=== PATIENT | male | born 1975 | race Caucasian/White ===

== ENCOUNTER 2024-04-01 15:20 | Emergency (ER) | payer BC, SELFPAY ==
[2024-04-01 15:35] VITALS: BP 139/95
--- NOTE | 2024-04-01 15:37 | ED.GENMED ---
ED Provider Triage
<Arnoldo Arriaga PA-C - Last Filed: 04/01/24 15:39>
-
Patient seen by provider in Triage?: Seen in Triage
48-year-old male with history of bilateral inguinal hernia repair done about a year and a half ago at a different hospital presents with lower abdominal pain and burning over the past several days. He feels like he did something 2 days ago that
aggravated his hernia repair. He notes increased frequency of urination and has been moving his bowels but no vomiting. He notes intermittent chills but no measurable fever
Looks uncomfortable on exam but vital signs are stable. Will check labs and have him drink for CT scan of abdomen
Patient evaluated by healthcare provider at triage but warrants further assessment
History of Present Illness
<Arnoldo Arriaga PA-C - Last Filed: 04/01/24 15:39>
General
Chief Complaint: Abdominal Pain
Time Seen by Provider: 04/01/24 17:04
<Sahara Lizarraga PA-C - Last Filed: 04/01/24 22:34>
General
Source: patient
Exam Limitations: none
Nursing documentation reviewed up to this point in time: agreed with
History of Present Illness
History of Present Illness:
48-year-old male with a past medical history of inguinal hernias presents emergency department today with concerns of lower abdominal pain for the past 2 weeks. Patient reports that he noticed the pain got acutely worse this past week. He states
that when he eats, he gets a sensation of fullness in his lower abdomen which makes him uncomfortable He states that how he feels right now is how he felt before he had to get his inguinal hernia surgery. He denies any testicular pain, denies any
burning with urination. He denies any nausea or vomiting. He notes subjective chills. He states that when he was exercising this past week, he was running and felt an acute worsening of her pain and felt like that aggravated it. He denies other
past intra-abdominal surgeries.
Review of Systems
<Sahara Lizarraga PA-C - Last Filed: 04/01/24 22:34>
Review of Systems
All Other Systems: ROS reviewed and negative except as documented in HPI and ROS
Phy Exam
<Sahara Lizarraga PA-C - Last Filed: 04/01/24 22:34>
Physical Exam
Physical Exam:
General: Patient is well appearing and in no acute distress; non-toxic
Skin: Warm and dry, no rashes or lesions
Head: Normocephalic, atraumatic
Eyes: Sclera non-icteric. EOMs intact.
Cardiac: Regular rate and rhythm, no murmurs
Peripheral Vascular: No lower extremity swelling or edema
Pulm: Normal respiratory effort, no wheezes, rales, rhonchi
Abdomen: Left lower quadrant abdominal tenderness with guarding noted, no palpable abdominal masses
Neuro: CN II-XII intact, no focal neurologic deficits.
Psychiatric: Appropriate mood and affect.
Course
<Arnoldo Arriaga PA-C - Last Filed: 04/01/24 15:39>
Orders/Labs/Results
Orders:
Orders
04/01/24 15:36
Iohexol [Omnipaque] See Protocol PO NOW STA
04/01/24 15:37
CT Abd/pel W Iv And Oral Contr Urgent
Comment:
Reason For Exam: lower abdominal pain, history of hernia repair
04/01/24 15:42
Complete Blood Count/With Diff Urgent
Comprehensive Metabolic Panel Urgent
Lipase Urgent
04/01/24 17:38
Urinalysis Reflex To Culture Urgent
Date Specimen was Collected: 04/01/24
Time Specimen was Collected: 17:17
Abnormal Lab Results
04/01/24
15:42
Glucose 109 H mg/dl
(70-99)
04/01/24 15:42
04/01/24 15:42
Vital Signs
Initial and Last Documented VS:
Initial Vital Signs
Temp Pulse Resp BP Pulse Ox
36.6 C 66 16 139/95 98
04/01/24 15:35 04/01/24 15:35 04/01/24 15:35 04/01/24 15:35 04/01/24 15:35
Last Documented Vital Signs
Temp Pulse Resp BP Pulse Ox
36.6 C 67 18 132/83 98
04/01/24 15:35 04/01/24 20:16 04/01/24 20:16 04/01/24 20:16 04/01/24 20:16
Julietalt;Sahara Lizarraga PA-C - Last Filed: 04/01/24 22:34>
Orders/Labs/Results
Orders:
Orders
04/01/24 15:36
Iohexol [Omnipaque] See Protocol PO NOW STA
04/01/24 15:37
CT Abd/pel W Iv And Oral Contr Urgent
Comment:
Reason For Exam: lower abdominal pain, history of hernia repair
04/01/24 15:42
Complete Blood Count/With Diff Urgent
Comprehensive Metabolic Panel Urgent
Lipase Urgent
04/01/24 17:38
Urinalysis Reflex To Culture Urgent
Date Specimen was Collected: 04/01/24
Time Specimen was Collected: 17:17
Abnormal Lab Results
04/01/24
15:42
Glucose 109 H mg/dl
(70-99)
04/01/24 15:42
04/01/24 15:42
Vital Signs
Initial and Last Documented VS:
Initial Vital Signs
Temp Pulse Resp BP Pulse Ox
36.6 C 66 16 139/95 98
04/01/24 15:35 04/01/24 15:35 04/01/24 15:35 04/01/24 15:35 04/01/24 15:35
Last Documented Vital Signs
Temp Pulse Resp BP Pulse Ox
36.6 C 67 18 132/83 98
04/01/24 15:35 04/01/24 20:16 04/01/24 20:16 04/01/24 20:16 04/01/24 20:16
<Konrad Cooney MD - Last Filed: 04/01/24 23:32>
Orders/Labs/Results
Orders:
Orders
04/01/24 15:36
Iohexol [Omnipaque] See Protocol PO NOW STA
04/01/24 15:37
CT Abd/pel W Iv And Oral Contr Urgent
Comment:
Reason For Exam: lower abdominal pain, history of hernia repair
04/01/24 15:42
Complete Blood Count/With Diff Urgent
Comprehensive Metabolic Panel Urgent
Lipase Urgent
04/01/24 17:38
Urinalysis Reflex To Culture Urgent
Date Specimen was Collected: 04/01/24
Time Specimen was Collected: 17:17
Abnormal Lab Results
04/01/24
15:42
Glucose 109 H mg/dl
(70-99)
04/01/24 15:42
04/01/24 15:42
Vital Signs
Initial and Last Documented VS:
Initial Vital Signs
Temp Pulse Resp BP Pulse Ox
36.6 C 66 16 139/95 98
04/01/24 15:35 04/01/24 15:35 04/01/24 15:35 04/01/24 15:35 04/01/24 15:35
Last Documented Vital Signs
Temp Pulse Resp BP Pulse Ox
36.6 C 67 18 132/83 98
04/01/24 15:35 04/01/24 20:16 04/01/24 20:16 04/01/24 20:16 04/01/24 20:16
<Sahara Lizarraga PA-C - Last Filed: 04/01/24 22:34>
MDM/Problems Addressed
Differential Diagnosis Includes:
See below
MDM/Problems Addressed:
NUMBER AND COMPLEXITY OF PROBLEMS ADDRESSED AT THE ENCOUNTER
� Chronic conditions affecting care: N/A
� Acute Exacerbation and/or Progression of Chronic Illness: N/A
� Differential Diagnosis includes: Differentials include diverticulitis, incarcerated hernia, colitis, abdominal wall
AMOUNT AND/OR COMPLEXITY OF DATA TO BE REVIEWED AND ANALYZED
� I performed an independent evaluation of and my interpretation is:
CT: No acute abnormalities
Laboratory Studies: No leukocytosis with lipase normal no elevation of LFTs
Other:
� Review of other/old records: Reviewed previous records in [facility], no previous ER physician or discharge summaries to review
� Clinical information was obtained by an independent historian: partner present who helped provide HPI
� Prescriptions/Medications Considered but not given: n/a
� Further testing considered but not performed: n/a
RISK OF COMPLICATIONS AND/OR MORBIDITY OR MORTALITY OF PATIENT MANAGEMENT
� Social determinants of health affecting care: none
� Discussion with other providers: ER attending
� Escalation of care including admission/observation vs risk of discharge considered:
48-year-old male with past medical history of bilateral inguinal hernias presents emergency department today with lower abdominal pain and pelvic pain for the past week but noticed an acute worsening after running and exercising. He has no fevers
or chills, no diarrhea or constipation. He has no urinary symptoms. On physical exam he is well-appearing his tenderness seems to be localized to the left lower quadrant he does have guarding but no palpable abdominal masses. CAT scan done with
IV and oral contrast which was negative for any hernias or acute intra-abdominal pathology. Did show diverticulosis. Discussed findings with patient. In light of patient's injury and pain is worse with movement, suspect possible inguinal or
abdominal wall musculature strain. Patient stable for. Patient has a follow-up appointment with his surgeon next week.
<Sahara Lizarraga PA-C - Last Filed: 04/01/24 22:34>
*Critical Care Note
Total Time (30-74mins, 75-104mins- exclusive of procedures): Not Applicable
ED Attending Note
<Arnoldo Arriaga PA-C - Last Filed: 04/01/24 15:39>
-
Portions of this chart may have been created with voice recognition software.� Occasional wrong word or��sound alike� substitutions may have occurred due to the inherent limitations of voice recognition software.
<Konrad Cooney MD - Last Filed: 04/01/24 23:32>
ED Attending Note
Patient seen and examined by attending physician: Yes
ED Attending Note:
I have seen and evaluated the patient with a [id number] encounter. I have spoken to the advance practicer provider and involved in the medical history, the physical exam, medical decision making.
Evaluation and management service: agree unless noted differently below.
Results interpretation: agree unless noted differently below.
Focused HPI: 48-year-old male presents to the ER for evaluation of suprapubic pain. He does have notable history of inguinal hernia repair bilaterally about 1-1/2 years ago. He reports that pain is located suprapubic region does not radiate. He
says it is worse with certain movements and feels like a sharp sensation with movement. No relieving factors noted. He denies any dysuria, hematuria, change in urinary frequency to be�triage note mentions increased urination but he denies this to
me. He denies any change in his bowels. He denies any testicular pain or swelling. He denies any other complaints. He does admit that he does regular exercise but he cannot recall a specific injury.
Physical exam: Awake alert no distress. Vital signs normal. No appreciable hernia on examination of the inguinal region. He has some mild tenderness in the suprapubic region.
Medical Decision Makin-year-old male presents for evaluation of suprapubic pain positional. Vitals and exam as above. Labs sent off including a CBC and a CMP which were unremarkable. Urinalysis negative for infection. CT abdomen pelvis no
acute pathology. Suspect that this is likely an abdominal wall strain/injury. Stable for discharge�advised rest, NSAIDs, follow-up as an outpatient within a week. He is agreeable to this. We spoke about return precautions all questions answered.
Discharge Plan
Departure
Patient Disposition: Home (Routine Discharge)
Date of Disposition: 04/01/24
Time of Disposition: 20:16
Patient with high blood pressure during this ER visit?: Yes
Condition: Good
Discharge Problem:
Abdominal wall strain
Instructions: Abdominal Pain, BLOOD PRESSURE
Referrals:
Shawna Grider, [Family Provider] -
Activity Restrictions/Additional Instructions:
Your blood work is unremarkable. Your urinalysis does not show any signs of infection.
We suspect you have an abdominal wall strain considering that your symptoms acutely worsen with physical activity and running. Please follow-up with your surgeon as scheduled.
PLEASE RETURN EMERGENCY DEPARTMENT SHOULD YOU DEVELOP CHEST PAIN, SHORTNESS OF BREATH, ACUTE WORSENING OF HER SYMPTOMS, BLOOD IN YOUR URINE, BURNING WITH URINATION, FEVERS OR CHILLS, WEAKNESS, CONFUSION, DIFFICULTY SPEAKING, BLOOD IN YOUR STOOLS, OR
ANY OTHER SIGNS OR SYMPTOMS WORRISOME TO YOU.
Interventions
Interventions:
*Risk Screen - Suicide Last Done: 04/01/24 15:39
*General Assessment Last Done: 04/01/24 20:22
*Neglect/Abuse Screening Last Done: 04/01/24 15:39
ED- Fall Risk Assessment Last Done: 04/01/24 20:22
*ED COVID-19 Vaccine History Last Done: 04/01/24 20:22
*Nursing Disposition Last Done: 04/01/24 20:22
VO-Ovnofg-[id number] Assessment Last Done: 04/01/24 17:30
Discharge Date and Time
Discharge Date/Time: 04/01/24 20:22
Print Language: BELIZEAN
[2024-04-01 15:50] LABS: % Basophils 0.6 % (0-2); % Eosinophils 1.1 % (0-6); % Immature Granulocytes 0.1 % (0-0.5); % Lymphocytes 28.6 % (20.5-51.1); % Monocytes 6.3 % (1.7-9.3); % Neutrophils 63.3 % (42.2-75.2); Absolute Eosinophils 0.1 10^3/uL (0-0.7); Absolute Monocytes 0.5 10^3/uL (0.1-0.6); Absolute Neutrophils 4.5 10^3/uL (1.4-6.5); Hematocrit 44.9 % (39.0-52.0); Hemoglobin 15.3 g/dL (13.0-18.0); Mean Corp Hgb Conc. 34.1 g/dL (33.0-37.0); Mean Corpuscular Hgb 29.7 pg (27.0-31.0); Mean Corpuscular Volume 87.2 fL (80.0-94.0); Mean Platelet Volume 8.3 fL (7.4-10.4); Nucleated Red Blood Cells % 0 % (-); Platelet Count 254 10^3/uL (130-400); Red Blood Cell Count 5.15 10^6/uL (4.70-6.10); Red Cell Dist. Width 12.4 % (11.5-14.5); White Blood Cell Count 7.1 10^3/uL (4.8-10.8)
[2024-04-01 16:11] LABS: ALT (SGPT) 21 U/L (0-50); AST (SGOT) 24 U/L (17-59); Albumin 4.6 g/dl (3.5-5.0); Alkaline Phosphatase 61 U/L (38-126); Blood Urea Nitrogen 14 mg/dl (9-20); Calcium 9.3 mg/dl (8.4-10.2); Carbon Dioxide 28 mmol/L (22-30); Chloride 100 mmol/L (98-107); Glucose 109 mg/dl (70-99); Lipase 65 U/L (23-300); Potassium 4.5 mmol/L (3.5-5.1); Sodium 139 mmol/L (135-145); Total Bilirubin 0.8 mg/dl (0.2-1.3); Total Protein 7.3 g/dl (6.3-8.2); eGFR > 60.00
[2024-04-01] MEDS: OMNIPAQUE 50 ML PO (16:12)
[2024-04-01 17:45] LABS: Urine Albumin Negative (Neg - Trace); Urine Bilirubin Negative (Negative); Urine Character Clear (Clear); Urine Color Yellow; Urine Glucose Negative (Negative); Urine Ketone Negative (Negative); Urine Leukocyte Negative (Negative); Urine Nitrite Negative (Negative); Urine Occult Blood Negative (Negative); Urine Specific Gravity 1.005 (<1.030); Urine Urobilinogen Negative (Neg - 1+)
[2024-04-01 20:16] VITALS: BP 132/83
== END 2024-04-01 20:22 | disposition home or self-care (01) ==
LOC: EMR 15:20
PROVIDERS: Physician Assistant; EMERGENCY PHYSICIAN Emergency Medicine; FAMILY PHYSICIAN Family Medicine
DX: S39.011A Strain of muscle, fascia and tendon of abdomen, initial encounter (principal); X58.XXXA Exposure to other specified factors, initial encounter
CPT/HCPCS: 99284; 74177; 80053; 81003; 83690; 85025; Q9967